=== PATIENT | male | born 1980 | race American Indian/Alaskan Native ===

== ENCOUNTER 2018-05-09 03:49 | Emergency (ER) | payer BC ==
[2018-05-09 03:57] VITALS: BP 147/99
[2018-05-09] MEDS ORDERED: TETRACAINE 0.5% OU ONE (06:35)
[2018-05-09] MEDS ORDERED: FUL-GLO OP ONE ×2 (06:40)
[2018-05-09] MEDS ORDERED: BSS OU ONE (06:40)
[2018-05-09] MEDS ORDERED: TETRACAINE 0.5% ONE (06:40)
--- NOTE | 2018-05-09 07:16 | Emergency Department Report ---
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 wears contact lenses states he is taking his lens scratched his eye 2 days ago now with burning irritation and redness 1 week before he can get in to see the doctor there is no decrease in vision just photophobia burning and itching her primary concern MD chief complaint: eye pain, eye redness Onset/Timin -: days(s) Onset Description: sudden Location: left eye Place: home If Injury: none Eye Symptoms: burning, redness, pain, foreign body sensation, itching, discharge , photophobia Severity: moderate Severity scale (0 -10): 4 If Pain, Quality: burning Consistency: constant Context: contact lens use Associated Symptoms: denies: headache, neck pain, nausea/vomiting, cough, rhinorrhea, fever, shortness of breath Treatments Prior to Arrival: none - Related Data Patient Tetanus UTD: Yes Previous Rx's Medication Instructions Recorded Last Taken Type Cetirizine HCl [Zyrtec] 10 mg PO DAILY #30 tablet 05/09/18 Unknown Rx Ibuprofen 800 mg PO TID PRN #30 tablet 05/09/18 Unknown Rx Polymyxin B Sulf/Trimethoprim 10 ml OP Q3H 7 Days #10 ml 05/09/18 Unknown Rx [Polytrim Eye Drops] Allergies Allergy/AdvReac Type Severity Reaction Status Date / Time No Known Allergies Allergy Unverified 05/09/18 03:58 ED Review of Systems ROS: Stated complaint: LT EYE PAIN Other details as noted in HPI Constitutional: denies: chills, fever Eyes: eye pain, eye discharge ENT: denies: ear pain, throat pain Respiratory: denies: cough, shortness of breath, wheezing Cardiovascular: denies: chest pain, palpitations Endocrine: no symptoms reported Gastrointestinal: denies: abdominal pain, nausea, diarrhea Genitourinary: denies: urgency, dysuria Musculoskeletal: denies: back pain, joint swelling, arthralgia Skin: denies: rash, lesions Neurological: denies: headache, weakness, paresthesias Psychiatric: denies: anxiety, depression Hematological/Lymphatic: as per HPI ED Past Medical Hx - Past Medical History Previous Medical History?: No - Surgical History Past Surgical History?: No - Social History Smoking Status: Former Smoker Substance Use Type: None - Medications Home Medications: Home Medications Medication Instructions Recorded Confirmed Last Taken Type Cetirizine HCl [Zyrtec] 10 mg PO DAILY #30 tablet 05/09/18 Unknown Rx Ibuprofen 800 mg PO TID PRN #30 tablet 05/09/18 Unknown Rx Polymyxin B Sulf/Trimethoprim 10 ml OP Q3H 7 Days #10 ml 05/09/18 Unknown Rx [Polytrim Eye Drops] ED Physical Exam - General Limitations: No Limitations General appearance: alert, in no apparent distress - Head Head exam: Present: atraumatic, normocephalic - Eye Eye exam: Present: normal appearance, PERRL, EOMI, conjunctival injection. Absent: nystagmus, periorbital swelling, periorbital tenderness Pupils: Present: normal accommodation (is admitted now with). Absent: miosis - Expanded Eye Exam Expanded Pupils: Reactive: Bilateral Sclera/Conjunctival: Injection: Bilateral, Exudate: Left (he) Posterior chamber: Deferred: Bilateral Visual acuity (R) = 20/: 40 Visual acuity (L) = 20/: 40 With correction: No ( concern r) - ENT ENT exam: Present: normal exam, normal orophraynx, mucous membranes moist, TM's normal bilaterally, normal external ear exam - Neck Neck exam: Present: normal inspection, full ROM. Absent: tenderness, lymphadenopathy, thyromegaly - Respiratory Respiratory exam: Present: normal lung sounds bilaterally. Absent: respiratory distress, wheezes, stridor, chest wall tenderness - Cardiovascular Cardiovascular Exam: Present: regular rate, normal rhythm, normal heart sounds - GI/Abdominal GI/Abdominal exam: Present: soft, normal bowel sounds - Rectal Rectal exam: Present: deferred - Extremities Exam Extremities exam: Present: normal inspection - Back Exam Back exam: Present: normal inspection - Neurological Exam Neurological exam: Present: alert, oriented X3 - Psychiatric Psychiatric exam: Present: normal affect, normal mood - Skin Skin exam: Present: warm, dry, intact, normal color. Absent: rash ED Course Vital Signs 05/09/18 05/09/18 03:49 03:58 Temperature 98.1 F 98.1 F Pulse Rate 68 68 Respiratory 18 19 Rate Blood Pressure 147/99 147/99 O2 Sat by Pulse 97 97 Oximetry ED Medical Decision Making - Medical Decision Making Anesthesia with tetracaine fluorescein strip revealed inverted swelling irrigated with sterile saline was a small corneal abrasion 12:00 visual acuity 20/40 bilaterally conjunctiva are injected patient defers Greg-Pen to ophthalmology plan Polytrim eyedrops every 3 hours while awake Zyrtec by mouth daily ibuprofen when necessary pain , follow with ophthalmology tomorrow and patient verbalizes understanding and agreement with discharge plan be DC'd home in stable condition at this time pain reduced to 2/10 tolerable per patient photophobia relieved with tetracaine Critical care attestation.: If time is entered above; I have spent that time in minutes in the direct care of this critically ill patient, excluding procedure time. ED Disposition Clinical Impression: Conjunctivitis Qualifiers: Conjunctivitis type: acute Acute conjunctivitis type: bacterial Laterality: left Qualified Code(s): H10.32 - Unspecified acute conjunctivitis, left eye Disposition: DC-01 TO HOME OR SELFCARE Is pt being admited?: No Does the pt Need Aspirin: No Condition: Good Instructions: Conjunctivitis (ED) Prescriptions: Cetirizine HCl [Zyrtec] 10 mg PO DAILY #30 tablet Ibuprofen 800 mg PO TID PRN #30 tablet PRN Reason: Pain , Severe (7-10) Polymyxin B Sulf/Trimethoprim [Polytrim Eye Drops] 10 ml OP Q3H 7 Days #10 ml Referrals: DHARA MATTHEWS MD [Staff Physician] - 3-5 Days Forms: Work/School Release Form(ED) Time of Disposition: 07:23
== END 2018-05-09 07:38 | disposition home or self-care (01) ==
LOC: ED 03:49
DX: H10.32 Unspecified acute conjunctivitis, left eye (principal); Z87.891 Personal history of nicotine dependence
CPT/HCPCS: 99282